=== PATIENT | female | born 1955 | race Caucasian/White ===

== ENCOUNTER 2021-05-10 06:20 | Inpatient (IN) | payer MEDICARE, MEDICAID ==
[~2021-05-10] VITALS: Ht 167.6 cm; Wt 64.4 kg
[2021-05-10 07:52] LABS: RED BLOOD COUNT 3.42 M/UL (4.00-5.10); WHITE BLOOD COUNT 14.1 K/UL (4.5-11.0)
[2021-05-10 13:05] LABS: HEMOGLOBIN 9.6 gm/dl (12.3-15.3)
[2021-05-10 22:15] LABS: HEMOGLOBIN 10.8 gm/dl (12.3-15.3)
[2021-05-11 02:42] LABS: HEMOGLOBIN 9.8 gm/dl (12.3-15.3)
[2021-05-11 02:43] LABS: WHITE BLOOD COUNT 9.8 K/UL (4.5-11.0)
[2021-05-11 03:50] LABS: BUN/CREATININE RATIO 29 (0-10)
[2021-05-11 12:50] LABS: ACINETOBACTER BAUMANNII Not Detected (Negative); CANDIDA ALBICANS Not Detected (Negative); CANDIDA KRUSEI Not Detected (Negative); CANDIDA TROPICALIS Not Detected (Negative); ENTEROCOCCUS Not Detected (Negative); ESCHERICHIA COLI Not Detected (Negative); HAEMOPHILUS INFLUENZAE Not Detected (Negative); KLEBSIELLA OXYTOCA Not Detected (Negative); KLEBSIELLA PNEUMONIAE Not Detected (Negative); KPC-CARBAPENEM-RESISTANCE GENE Not Detected (Negative); PROTEUS Not Detected (Negative); PSEUDOMONAS AERUGINOSA Not Detected (Negative); SERRATIA MARCESANS Not Detected (Negative); STAPHYLOCOCCUS Not Detected (Negative); STAPHYLOCOCCUS AUREUS Not Detected (Negative); STREP AGALACTIAE (GROUP B) Not Detected (Negative); STREP PYOGENES (GROUP A) Not Detected (Negative); STREPTOCOCCUS Not Detected (Negative); mecA (METHICILLIN RESIST GENE Not Detected (Negative); vanA/B (VANCOMYCIN RESIST GENE Not Detected (Negative)
[2021-05-12 04:13] LABS: HEMOGLOBIN 9.8 gm/dl (12.3-15.3); RED BLOOD COUNT 3.03 M/UL (4.00-5.10); WHITE BLOOD COUNT 7.8 K/UL (4.5-11.0)
[2021-05-12 04:15] LABS: BUN/CREATININE RATIO 17 (0-10)
[2021-05-12] MEDS ORDERED: ZETIA10 MG PO (06:57)
[2021-05-12] MEDS ORDERED: PROVENTIL HFA6.7 GM INH (06:57)
[2021-05-12] MEDS ORDERED: OMEPRAZOLE20 MG PO (06:57)
[2021-05-12] MEDS ORDERED: LOPRESSOR 50 MG50 MG PO (06:58)
[2021-05-12] MEDS ORDERED: LISINOPRIL20 MG PO (06:58)
[2021-05-12] MEDS ORDERED: MONTELUKAST SOD10 MG PO (06:58)
[2021-05-12] MEDS ORDERED: LISINOPRIL-HCT1 EAC2 PO (06:59)
[2021-05-12] MEDS ORDERED: ESZOPICLONE3 MG PO (06:59)
[2021-05-12] MEDS ORDERED: HYDROCODON-ACE1 EAC6 PO (06:59)
[2021-05-12] MEDS ORDERED: KLONOPIN TAB 00.5 MG PO (06:59)
[2021-05-12] MEDS ORDERED: ATORVASTATIN CA40 MG PO (07:00)
[2021-05-12] MEDS ORDERED: DITROPAN 5 MG TA5 MG PO (07:00)
[2021-05-13 03:51] LABS: HEMOGLOBIN 10.5 gm/dl (12.3-15.3); RED BLOOD COUNT 3.25 M/UL (4.00-5.10); WHITE BLOOD COUNT 9.7 K/UL (4.5-11.0)
[2021-05-13 04:26] LABS: BUN/CREATININE RATIO 14 (0-10)
[2021-05-14 03:32] LABS: HEMOGLOBIN 9.6 gm/dl (12.3-15.3); RED BLOOD COUNT 3.03 M/UL (4.00-5.10); WHITE BLOOD COUNT 6.8 K/UL (4.5-11.0)
[2021-05-14 04:01] LABS: BUN/CREATININE RATIO 11 (0-10)
[2021-05-15 04:24] LABS: HEMOGLOBIN 9.6 gm/dl (12.3-15.3); RED BLOOD COUNT 2.97 M/UL (4.00-5.10); WHITE BLOOD COUNT 6.6 K/UL (4.5-11.0)
[2021-05-15 05:18] LABS: BUN/CREATININE RATIO 8 (0-10)
[2021-05-15] MEDS ORDERED: CIPRO500 MG PO (10:33)
[2021-05-15] MEDS ORDERED: FLAGYL 250 MG250 MG PO (10:33)
[2021-05-15] MEDS ORDERED: LISINOPRIL10 MG PO (10:33)
[2021-05-15] MEDS ORDERED: PROTONIX 40 MG40 M1 PO (10:33)
--- NOTE | 2021-05-15 17:12 | NUR ---
CALLED SON PHONE # MULTIPLE TIMES WITH NO ANSWER, AND VOICE MAIL IS FULL. WILL CONTINUE TO TRY TO REACH PATIENT FAMILY
[2021-05-16 05:22] LABS: BUN/CREATININE RATIO 10 (0-10)
== END 2021-05-16 13:22 | disposition home or self-care (01) | DRG 377 ==
LOC: ER1 06:20 → CDU 09:03 → PROG CARE 09:03
PROVIDERS: Emergency Medicine; Internal Medicine; Internal Medicine Gastroenterology; Physician Assistant; ADMIT Emergency Medicine
PROC: B24BZZZ Ultrasonography of Heart with Aorta (ICD-10-PCS; 2021-05-12)
PROC: 0DJ08ZZ Inspection of Upper Intestinal Tract, Via Natural or Artificial Opening Endoscopic (ICD-10-PCS; principal; 2021-05-12 08:30)
DX: K92.2 Gastrointestinal hemorrhage, unspecified (principal); J18.9 Pneumonia, unspecified organism; G92.8 Other toxic encephalopathy; Z20.822 Contact with and (suspected) exposure to COVID-19; R57.1 Hypovolemic shock; D62 Acute posthemorrhagic anemia; J96.11 Chronic respiratory failure with hypoxia; N17.9 Acute kidney failure, unspecified; B18.9 Chronic viral hepatitis, unspecified; C34.90 Malignant neoplasm of unspecified part of unspecified bronchus or lung; C79.51 Secondary malignant neoplasm of bone; N30.00 Acute cystitis without hematuria; K52.9 Noninfective gastroenteritis and colitis, unspecified; D69.6 Thrombocytopenia, unspecified; D63.1 Anemia in chronic kidney disease; N32.81 Overactive bladder; E78.5 Hyperlipidemia, unspecified; E83.42 Hypomagnesemia; I95.9 Hypotension, unspecified; F17.210 Nicotine dependence, cigarettes, uncomplicated; I27.20 Pulmonary hypertension, unspecified; I12.9 Hypertensive chronic kidney disease with stage 1 through stage 4 chronic kidney disease, or unspecified chronic kidney disease; E11.22 Type 2 diabetes mellitus with diabetic chronic kidney disease; N18.30 Chronic kidney disease, stage 3 unspecified; K80.20 Calculus of gallbladder without cholecystitis without obstruction; E86.0 Dehydration; E11.649 Type 2 diabetes mellitus with hypoglycemia without coma; Z98.890 Other specified postprocedural states; Z88.2 Allergy status to sulfonamides
CPT/HCPCS: ECHO; 36415; 71045; 71260; 76705; 80048; 80053; 80202; 81001; 82550; 82553; 82962; 83605; 83690; 83735; 83874; 84132; 84484; 85014; 85018; 85025; 85027; 85610; 85730; 87040; 87077; 87086; 87150; 87186; 93005; 93306; 94760; 99285; C9113; J0456; J0696; J1335; J2704; J3370; J3475; J7030; J7040; Q9967; U0002